=== PATIENT | male | born 1960 | race African-American/Black ===

== ENCOUNTER 2023-12-12 03:40 | Emergency (ER) | payer OTHER, MEDICAID ==
[~2023-12-12] VITALS: Ht 177.8 cm; Wt 115.0 kg
[2023-12-12 03:41] VITALS: O2SAT 100
[2023-12-12 04:54] LABS: BASOPHILS % 0.5 % (0.0-2.0); EOSINOPHILS % 0.8 % (0.0-5.0); HEMATOCRIT. 41.1 % (42.0-52.0); HEMOGLOBIN. 13.9 g/dL (14.0-18.0); LYMPHOCYTES % 19.9 % (20.0-50.0); MEAN CORPUSCULAR HEMOGLOBIN 30.1 pg (28.0-32.0); MEAN CORPUSCULAR HGB CONC 33.8 g/dL (31.0-37.0); MEAN CORPUSCULAR VOLUME 89.1 fL (80.0-94.0); NEUTROPHILS % 67.8 % (40.0-76.0); PLATELET 421 x1000/uL (130-400); RED BLOOD CELL COUNT 4.61 mill/uL (4.7-6.1); WHITE BLOOD COUNT 7.3 x1000/uL (4.5-11.0)
[2023-12-12 05:03] LABS: INR 1.2; PROTHROMBIN TIME 13.2 sec (9.6-11.0)
[2023-12-12 05:04] LABS: CARBON DIOXIDE 26 mEq/L (21-32); CHLORIDE 103 mEq/L (98-107); POTASSIUM 3.5 mEq/L (3.5-5.1); SODIUM 137 mEq/L (136-145)
[2023-12-12 05:09] LABS: GLUCOSE 102 mg/dL (70-105)
[2023-12-12 05:10] LABS: TROPONIN I HIGH SENSITIVITY 52 ng/L (3.0-53); UREA NITROGEN BLOOD 20 mg/dL (9-23)
[2023-12-12 05:11] LABS: ALANINE AMINOTRANSFERASE 35 IU/L (10-49); ALBUMIN 3.3 g/dL (3.2-4.8); ASPARTATE AMINOTRANSFERASE 64 IU/L (<34); CREATINE KINASE 238 IU/L (46-171)
[2023-12-12 05:12] LABS: BILIRUBIN TOTAL 0.6 mg/dL (0.1-1.0); PROTEIN TOTAL 7.2 g/dL (6.0-8.3)
[2023-12-12 05:15] LABS: ETHANOL BLOOD < 10 mg/dL (<10)
[2023-12-12] MEDS: LEVOFLOXACIN 750MG PREMIX 150 ML IV NR (05:40)
[2023-12-12] MEDS: GUAIFENESIN 600MG ER TABLET PO NR (06:00)
[2023-12-12 10:39] VITALS: TEMP 97.3
[2023-12-12 12:04] VITALS: BP 125/90; PULSE 105; RESP 27
[2023-12-12 12:49] LABS: CALCIUM 9.3 mg/dL (8.7-10.4)
== END 2023-12-12 12:21 | disposition short-term general hospital (02) ==
LOC: ER 03:40
DX: J18.9 Pneumonia, unspecified organism (principal); I83.019 Varicose veins of right lower extremity with ulcer of unspecified site; Z86.73 Personal history of transient ischemic attack (TIA), and cerebral infarction without residual deficits
CPT/HCPCS: 80053; 80320; 82550; 83880; 83605; 83690; 83735; 84100; 85025; 85610; 87040; 84484; 36415; 84145; 71045; 93970; 93005; 96365; 96366; 99285; J1956; G0480

== ENCOUNTER 2024-12-03 12:27 | Emergency (ER) | payer OTHER ==
[~2024-12-03] VITALS: Ht 188 cm; Wt 150.0 kg
[2024-12-03 12:29] VITALS: O2SAT 100
[2024-12-03 13:22] LABS: BASOPHILS % 0.6 % (0.0-2.0); EOSINOPHILS % 1.5 % (0.0-5.0); HEMATOCRIT. 42.7 % (42.0-52.0); HEMOGLOBIN. 13.9 g/dL (14.0-18.0); LYMPHOCYTES % 36.2 % (20.0-50.0); MEAN CORPUSCULAR HEMOGLOBIN 27.5 pg (28.0-32.0); MEAN CORPUSCULAR HGB CONC 32.7 g/dL (31.0-37.0); MEAN CORPUSCULAR VOLUME 84.3 fL (80.0-94.0); MEAN PLATELET VOLUME 8.7 fl (7.4-10.4); MONOCYTES % 9.6 % (2.0-8.0); NEUTROPHILS % 52.1 % (40.0-76.0); PLATELET 198 x1000/uL (130-400); RED BLOOD CELL COUNT 5.07 mill/uL (4.7-6.1); RED CELL DISTRIBUTION WIDTH 20.6 % (11.6-14.6); WHITE BLOOD COUNT 3.7 x1000/uL (4.5-11.0)
[2024-12-03 13:35] VITALS: BP 141/87; PULSE 75; RESP 17; TEMP 36.6; O2SAT 100
[2024-12-03 13:59] LABS: CHLORIDE 107 mEq/L (98-107); POTASSIUM 4.1 mEq/L (3.5-5.1); SODIUM 137 mEq/L (136-145)
[2024-12-03 14:00] LABS: CALCIUM 9.3 mg/dL (8.7-10.4); CARBON DIOXIDE 22 mEq/L (21-32)
[2024-12-03 14:05] LABS: CREATININE 1.1 mg/dL (0.6-1.3); GLUCOSE 97 mg/dL (70-105); UREA NITROGEN BLOOD 18 mg/dL (9-23)
[2024-12-03 14:07] LABS: ALANINE AMINOTRANSFERASE 15 IU/L (10-49); ALBUMIN 3.6 g/dL (3.2-4.8); ASPARTATE AMINOTRANSFERASE 60 IU/L (<34)
[2024-12-03 14:08] LABS: BILIRUBIN DIRECT 0.3 mg/dL (<=3.0); BILIRUBIN TOTAL 0.6 mg/dL (0.1-1.0); PROTEIN TOTAL 7.3 g/dL (6.0-8.3)
[2024-12-03 14:39] LABS: TROPONIN I HIGH SENSITIVITY 14 ng/L (3.0-53)
== END 2024-12-03 14:53 | disposition home or self-care (01) ==
LOC: ER 12:27
DX: R10.9 Unspecified abdominal pain (principal); E11.9 Type 2 diabetes mellitus without complications; I10 Essential (primary) hypertension; I48.91 Unspecified atrial fibrillation; Z86.718 Personal history of other venous thrombosis and embolism; Z86.73 Personal history of transient ischemic attack (TIA), and cerebral infarction without residual deficits
CPT/HCPCS: 36415; 80048; 80076; 83880; 84484; 85025; 93005; 99284